=== PATIENT | female | born 1990 | race Caucasian/White ===

== ENCOUNTER 2019-09-03 20:18 | Observation (INO) | payer OTHER, SELFPAY ==
--- NOTE | ~2019-09-03 | CT_ITS ---
EXAMINATION: CT soft tissue neck wo con DATE: 09/03/2019 20:49 INDICATION: Difficulty swallowing, possible food bolus TECHNIQUE: Computed tomography (CT) of the neck was performed without intravenous contrast. The dose- length product (DLP) was 546.15 mGy-cm. Automated exposure control and iterative reconstruction techn ique were employed. COMPARISON: None FINDINGS: The thyroid gland is unremarkable. The submandibular and parotid glands are symmetric. Ther e is no lymphadenopathy. There are no masses identified. The vasculature is patent. The airway is unr emarkable. There are no osseous abnormalities. The orbits are unremarkable. The superior mediastinum is unremarkable. There is minimal opacification of the left maxillary sinus. The visualized portions of the thoracic esophagus is mildly distended. IMPRESSION: 1. Mild distention of the thoracic esophagus which may reflect impacted food bolus. Reviewed, dictated and finalized at location A. IMPRESSION: 1. Mild distention of the thoracic esophagus which may reflect impacted food noe aneudy.
--- NOTE | 2019-09-03 20:19 | ED.GENADULT ---
HPI - General Adult General Chief complaint: Unspecified Stated complaint: cant swallow Time Seen by Provider: 09/03/19 20:19 Source: patient Mode of arrival: ambulatory Limitations: no limitations History of Present Illness HPI narrative: Patient is a 28-year-old female with a history of esophageal stricture who presents to the emergency department for evaluation of inability to swallow or tolerate secretions. Patient states that she was eating a chili dog this evening, she felt as if some of the food was getting stuck in her throat, waited for the sensation to pass and was able to tolerate a small sip of water before taking another bite and now been unable to tolerate any oral intake since that time. Patient states she feels as if there is food stuck in her upper esophagus. She has been vomiting her saliva. She denies any nausea, chest pain, shortness of breath. She states in the past she has seen Dr. Centeno for this, had an EGD with dilatation that improved her symptoms. Patient really has not had much follow-up since last time this occurred in 2018. Related Data Allergies Allergy/AdvReac Type Severity Reaction Status Date / Time diphenhydramine Allergy Unknown Verified 02/07/16 14:14 Review of Systems Review of Systems: Narrative: CONSTITUTIONAL: Denies fever CARDIOVASCULAR: Denies chest pain RESPIRATORY: Denies cough or dyspnea. GASTROINTESTINAL: Denies abdominal pain SKIN: Denies rash MUSCULOSKELETAL: Denies back pain NEUROLOGIC: Denies headache PMFSH Past Medical History Medical History Asthma Esophageal stricture Esophagitis Surgical History Surgical History (Updated 09/03/19 @ 20:39 by Sera Best MD) H/O section Social History Social History Smoking status: Never smoker Alcohol intake: current Gender identity (if verbalized by the patient): Female Exam Narrative: Exam Narrative: GENERAL: Awake, alert, conversant HEAD: Normocephalic, atraumatic. EYES: PERRLA and EOMI. ENT: Nares clear, no rhinorrhea or epistaxis. Mucous membranes moist. Spitting secretions. NECK: Supple. CHEST: No respiratory distress, breathing even and non labored HEART: Regular rate, sinus rhythm ABDOMEN:Non distended, non tender EXTREMITIES: Normal range of motion. No edema. SKIN: Warm, dry, no rash. NEURO:No focal deficits. Alert and oriented x3 Course Vital Signs Vital signs: Vital Signs Temperature 36.4 C 09/03/19 20:20 Pulse Rate 94 09/03/19 20:20 Respiratory Rate 18 09/03/19 20:20 Blood Pressure 143/91 H 09/03/19 20:20 Pulse Oximetry 100 09/03/19 20:20 Temperature 36.4 C 09/03/19 20:20 Pulse Rate 94 09/03/19 21:22 Respiratory Rate 18 09/03/19 21:22 Blood Pressure 112/73 09/03/19 21:22 Pulse Oximetry 98 09/03/19 21:22 Medical Decision Making MDM Narrative Medical decision making narrative: Patient presented to the emergency department for evaluation of possible food bolus, difficulty swallowing her secretions. At the time of assessment, patient is in no acute distress, she does have an emesis basin with mostly saliva in it. Patient without any chest pain or shortness of breath. No findings concerning for Boerhaaves syndrome on exam. CT exam confirms distal esophageal dilation which is concerning for likely food impaction. Did try nitroglycerin, glucagon, Zofran without any improvement in the patient's symptoms. Spoke with Dr. Centeno on-call, the patient to be admitted to hospitalist service, to get IV fluids and remain n.p.o. overnight for EGD first thing in the morning. Patient and family were updated. Differential Diagnosis Differential Diagnosis: Food impaction, esophageal stricture, foreign body Medical Records Medical records reviewed: Yes I reviewed the patient's medical records. Vital Signs Vital Signs: Vital Signs Temperature 36.4 C
[2019-09-03 20:20] VITALS: BP 143/91; PULSE 94; RESP 18; TEMP 36.4; O2SAT 100
[2019-09-03 21:03] LABS: Basophils Absolute Auto 0.1 K/mm3 (0.0-0.1); Basophils Percent Auto 0.7 % (0.2-1.2); Eosinophils Absolute Auto 0.3 K/mm3 (0-0.3); Eosinophils Percent Auto 3.7 % (0-4.4); Hematocrit 40.7 % (37.0-47.0); Hemoglobin 13.6 g/dL (12.0-15.0); Immature Granulocyte Absolute 0.03 K/mm3 (0.00-0.031); Immature Granulocyte Percent A 0.3 % (0-0.5); Lymphocytes Absolute Auto 2.77 K/mm3 (0.9-3.2); Lymphocytes Percent Auto 30.9 % (18.3-44.2); Mean Corpuscular HGB Conc 33.4 g/dl (32-36); Mean Corpuscular Hemoglobin 28.6 pg (26-34); Mean Corpuscular Volume 85.5 fl (80-100); Mean Platelet Volume 10.8 fl (7.4-10.4); Monocytes Absolute Auto 0.5 K/mm3 (0.1-0.6); Neutrophils Absolute Auto 5.3 K/mm3 (1.3-6.7); Neutrophils Percent Auto 59.4 % (45.5-73.1); Platelet Count Result 294 k/mm3 (150-375); Red Blood Count 4.76 M/mm3 (4.2-5.4); Red Cell Distribution Width 12.4 % (11.5-14.5)
[2019-09-03] MEDS: SODIUM CHLORIDE 0.9% IV 1,000 ML 999 ML IV CONT (21:04)
[2019-09-03] MEDS: ONDANSETRON INJ 4 MG/2 ML VIAL IV PUSH (21:04)
[2019-09-03] MEDS: NITROGLYCERIN SL 0.4 MG TABLET SUBLINGUAL (21:04)
[2019-09-03 21:22] VITALS: BP 112/73; PULSE 94; RESP 18; O2SAT 98
[2019-09-03 21:51] LABS: Blood Urea Nitrogen 14 mg/dL (7-17); Calcium 8.8 mg/dL (8.4-10.2); Carbon Dioxide 27 mmol/L (22-30); Chloride 104 mmol/L (98-107); Estimated Glomerular Filt Rate > 60; Glucose 100 mg/dL (65-105); Potassium 3.7 mmol/L (3.4-5.0); Sodium 139 mmol/L (137-145)
[2019-09-03] MEDS: GLUCAGON FOR INJ 1 MG VIAL IV CONT (22:20)
[2019-09-03 22:30] VITALS: RESP 18; O2SAT 98
[2019-09-03 22:45] VITALS: PULSE 73; RESP 16; O2SAT 99
[2019-09-03 23:11] VITALS: BP 138/97; PULSE 73; RESP 16; O2SAT 99
--- NOTE | 2019-09-03 23:13 | PM.IMHP ---
H&P: HPI History of Present Illness Chief complaint: Esophageal food impaction Narrative: Date and time of patient contact: 09/04/2019 at 2:30 a.m. Angie Cornell is a 28 year old female with a past medical history of nonspecific esophagitis and prior esophageal stricture May 2017 who presented to the ER with an inability to swallow err tolerate secretions. The patient reports that she has been eating chili dog this evening and felt as if food was getting stuck in her throat. She reported that she ate her 1st chili dog without problems but when she ate of bite of bread with her 2nd chili dog head sensation of globus. She waited for the sensation to pass in then tried to drink a small sip of water. She then took another bite of food and was unable to tolerate the food and vomited it up. She has not been able to tolerate any oral intake since that time. She was still having vomiting and difficulty controlling her secretions down in the ER. But time of my evaluation the patient is able to control her secretions in feels as if the food has moved down her esophagus. She reports that ever since she had her 1st esophageal obstruction that she chews her food carefully. The last time that she had symptoms like this she had had progressive dysphagia 4 months prior to coming in. This time she had not been having any significant dysphagia. She denies any chest pain or shortness of breath. She has not had any cough or congestion. She does have frequent snoring and has been told that she stops breathing at night. 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 Review of Systems Review of Systems: Narrative: 10 systems were reviewed with pertinent positives and negatives per HPI. Except as documented in the HPI, all other systems were reviewed and are negative. [facility] Past Medical History Medical History (Updated 09/04/19 @ 04:54 by Abby Mckeon DO) Asthma Esophageal stricture May 2017 Esophagitis May 2017 Surgical History Surgical History (Updated 09/04/19 @ 04:45 by Abby Mckeon DO) H/O section S/P dilatation of esophageal stricture May [address] Centeno Family History Family History Other Adopted person Social History Social History (Updated 09/04/19 @ 04:48 by GERARDO Parikh Social History: Primary care physician: Dr. Paul Gatica Code status: Full code Smoking status: Never smoker Alcohol intake: current Drinks per week: 2 Alcohol use details: She drinks 2-3 alcoholic beverages a week. Substance use: current Substance use type: does not use Additional living arrangements comments: She lives with her boyfriend of 5 years. She is from her who is been blocking a divorce since 2012. She has a son age 7 in a daughter age 8. 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 Gender identity (if verbalized by the patient): Female Spiritual care concerns: No Meds Home Medications and Allergies Home Medications Medication Instructions Recorded Confirmed Type albuterol sulfate 2 puff INHALATION Q4-6H PRN 09/04/19 09/04/19 History Allergies Allergy/AdvReac Type Severity Reaction Status Date / Time diphenhydramine Allergy Unknown Verified 02/07/16 14:14 Vital Signs Vital Signs - 24 hr 09/03/19 20:20 09/03/19 21:22 09/03/19 22:30 Temperature 97.6 F Pulse Rate 94 94 Respiratory Rate 18 18 18 Blood Pressure 143/91 H 112/73 Pulse Oximetry 100 98 98 09/03/19 22:45 Temperature Pulse Rate 73 Respiratory Rate 16 Blood Pressure Pulse Oximetry 99 Exam Narrative: Exam Narrative: PHYSICAL EXAM: WEIGHT 116 kg BMI 35.7 General: Obese, no acute distress HEENT: Mucous membranes are moist, no oral phary
--- NOTE | 2019-09-03 23:31 | ADMGEN ---
This patient, Angie Cornell, was admitted to 2 Medical Room 251-01. Patient/family oriented to hospital policies and general routines including ID bracelet, bed and alarms, visiting hours, pain management, procedures, bathroom and other care routines, personal items, smoking policy, room service/diet, and visiting hours. Valuables list has been completed. Information on how to activate the Rapid Response Team has been discussed. Patient/Family are encouraged to report perceived risks to care and to ask questions if they do not understand what they are told or what they should do.
[2019-09-03 23:49] VITALS: BP 149/93; PULSE 88; RESP 18; TEMP 35.9; O2SAT 100
[2019-09-03 23:50] VITALS: BMI 35.6
[2019-09-04] MEDS: SODIUM CHLORIDE 0.9% IV 1,000 ML 125 ML IV CONT (01:14)
[2019-09-04 06:00] VITALS: BP 111/72; PULSE 80; RESP 18; TEMP 36.1; O2SAT 98
--- NOTE | 2019-09-04 07:21 | WPDGICN ---
Assessment and Plan Assessment and plan (1) Esophageal obstruction due to food impaction: Code(s): K22.2 - Esophageal obstruction; T18.128A - Food in esophagus causing other injury, initial encounter Status: Acute Assessment and Plan: Food impaction that occurred last evening suspicious for narrowing of the esophagus. Plan is for EGD to assess more thoroughly. Likely she has esophageal stricture because of this finding on endoscopy 1-2 years ago. Plan is for EGD she may benefit from long-term acid reflux measures. This will be determine further after endoscopy. GI Consult Note Consult date/time: 09/04/19 07:21 HPI: Angie Cornell is a 28 year old female Seen in evaluation at the request of the emergency room. Patient in usual state of health till last evening she was eating chili dogs. She subsequently was unable to eat or swallow. She felt as though portion of her food became lodged in the mid substernal portion of the chest. She continues to feel swelling discomfort. Although intense pain has abated. Patient gives a history of esophageal stricture 1 year ago. That presented with a food impaction. At that time she had esophageal web dilated. In the intervening time she has had no difficulty. She does not have heartburn. Does takes no medications for acid reflux. She reports that her weight is stable she has had no bleeding. Family history is noncontributory. Review of Systems Review of Systems: All systems reviewed & are unremarkable except as noted in HPI and below PMFSH Past Medical History Medical History Asthma Esophageal stricture May 2017 Esophagitis May 2017 Surgical History Surgical History H/O section S/P dilatation of esophageal stricture May [address] Centeno Family History Family History Other Adopted person Social History Social History Social History: Primary care physician: Dr. Paul Gatica Code status: Full code Smoking status: Never smoker Alcohol intake: current Drinks per week: 2 Alcohol use details: She drinks 2-3 alcoholic beverages a week. Substance use: current Substance use type: does not use Additional living arrangements comments: She lives with her boyfriend of 5 years. She is from her who is been blocking a divorce since 2012. She has a son age 7 in a daughter age 8. 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 Gender identity (if verbalized by the patient): Female Spiritual care concerns: No Meds Home Medications and Allergies Home Medications Medication Instructions Recorded Confirmed Type albuterol sulfate 2 puff INHALATION Q4-6H PRN 09/04/19 09/04/19 History Allergies Allergy/AdvReac Type Severity Reaction Status Date / Time diphenhydramine Allergy Unknown Verified 02/07/16 14:14 Vital Signs Vital Signs - 24 hr 09/03/19 20:20 09/03/19 21:22 09/03/19 22:30 Temperature 97.6 F Pulse Rate 94 94 Respiratory Rate 18 18 18 Blood Pressure 143/91 H 112/73 Pulse Oximetry 100 98 98 09/03/19 22:45 09/03/19 23:11 09/03/19 23:49 Temperature 96.7 F L Pulse Rate 73 73 88 Respiratory Rate 16 16 18 Blood Pressure 138/97 H 149/93 H Pulse Oximetry 99 99 100 09/04/19 06:00 Temperature 97.0 F L Pulse Rate 80 Respiratory Rate 18 Blood Pressure 111/72 Pulse Oximetry 98 Exam Narrative: Exam Narrative: Physical exam reveals patient to be alert. Vital signs stable. HEENT exam unremarkable. She is anicteric. Lungs are clear to auscultation and percussion. Heart is without murmur or extra sounds. Abdominal exam bowel sounds are present soft nontender
[2019-09-04 07:42] VITALS: BP 131/77; PULSE 81; RESP 16; TEMP 36.6; O2SAT 99
--- NOTE | 2019-09-04 07:42 | WPDANESEPPF ---
Anes - Initial Pre Proc Eval Procedure: Operation Date: 09/04/19 11:00 Proposed Procedures p Esophagogastroduodenoscopy - Raudel Centeno MD Date/Time: 09/04/19 07:42 Surgeon: Patricia Whalen PA-C Pre Op Diagnosis: Esophageal food impaction Patient Data Age: 28 Gender: F Height: 1.8 m Weight: 116 kg Last Vital Signs Temp 36.1 C L 09/04/19 06:00 Pulse 80 09/04/19 06:00 Resp 18 09/04/19 06:00 BP 111/72 09/04/19 06:00 Pulse Ox 98 09/04/19 06:00 Allergies Allergy/AdvReac Type Severity Reaction Status Date / Time diphenhydramine Allergy Unknown Cramping Verified 09/04/19 07:40 of the Muscles Home Medications Medication Instructions Recorded Confirmed Type albuterol sulfate 2 puff INHALATION Q4-6H PRN 09/04/19 09/04/19 History Laboratory Tests 09/03/19 09/03/19 20:56 21:28 WBC 9.0 K/mm3 K/mm3 (4.5-10.0) RBC 4.76 M/mm3 M/mm3 (4.2-5.4) Hgb 13.6 g/dL g/dL (12.0-15.0) Hct 40.7 % % (37.0-47.0) MCV 85.5 fl fl (80-100) MCH 28.6 pg pg (26-34) MCHC 33.4 g/dl g/dl (32-36) RDW 12.4 % % (11.5-14.5) Plt Count 294 k/mm3 k/mm3 (150-375) MPV 10.8 fl H fl (7.4-10.4) Immature Gran % (Auto) 0.3 % % (0-0.5) Neut % (Auto) 59.4 % % (45.5-73.1) Lymph % (Auto) 30.9 % % (18.3-44.2) Drew % (Auto) 5.0 % % (2.6-8.5) Eos % (Auto) 3.7 % % (0-4.4) Baso % (Auto) 0.7 % % (0.2-1.2) Lymph # (Auto) 2.77 K/mm3 K/mm3 (0.9-3.2) Drew # (Auto) 0.5 K/mm3 K/mm3 (0.1-0.6) Eos # (Auto) 0.3 K/mm3 K/mm3 (0-0.3) Baso # (Auto) 0.1 K/mm3 K/mm3 (0.0-0.1) Abs Immat Gran (auto) 0.03 K/mm3 K/mm3 (0.00-0.031) Absolute Neuts (auto) 5.3 K/mm3 K/mm3 (1.3-6.7) Absolute Nucleated RBC 0.0 K/mm3 K/mm3 (0.0-0.012) Nucleated RBC % 0.0 % % (0.0-0.2) Sodium 139 mmol/L mmol/L (137-145) Potassium 3.7 mmol/L mmol/L (3.4-5.0) Chloride 104 mmol/L mmol/L (98-107) Carbon Dioxide 27 mmol/L mmol/L (22-30) BUN 14 mg/dL mg/dL (7-17) Creatinine 0.80 mg/dL mg/dL (0.7-1.0) Estim Creat Clear Calc Not Reportable Estimated GFR > 60 (59 - ) Glucose 100 mg/dL mg/dL (65-105) Calcium 8.8 mg/dL mg/dL (8.4-10.2) Patient hx anesthesia problems: none Family hx [facility] problems: [facility] Past Medical History Medical History (Updated 09/04/19 @ 07:42 by Boaz Cisneros MD) Asthma Esophageal stricture May 2017 Esophagitis May 2017 Obesity Snoring Surgical History Surgical History H/O section S/P dilatation of esophageal stricture May [address] Centeno Family History Family History Other Adopted person Social History Social History Social History: Primary care physician: Dr. Paul Gatica Code status: Full code Smoking status: Never smoker Alcohol intake: current Drinks per week: 2 Alcohol use details: She drinks 2-3 alcoholic beverages a week. Substance use: current Substance use type: does not use Additional living arrangements comments: She lives with her boyfriend of 5 years. She is from her who is been blocking a divorce since 2012. She has a son age 7 in a daughter age 8. 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 Gender identity (if verbalized by the patient): Female Spiritual care concerns: No Anes - Eval Final PreProcedure Day of Procedure 09/04/19 07:42 Patient weight: obese Heart: regular rate and rhythm Lungs: clear to auscultation and normal air movement Airway: Mallampati scale class II Neuro
[2019-09-04] MEDS: LACTATED RINGERS 1,000 ML 150 ML IV CONT (07:49)
--- NOTE | 2019-09-04 07:56 | PC.NURSE ---
Off the floor for EGD.
[2019-09-04 08:00] VITALS: PULSE 81; RESP 16; O2SAT 99
[2019-09-04 08:26] VITALS: BP 105/51; PULSE 83; RESP 18; O2SAT 97
[2019-09-04 08:36] VITALS: BP 93/52; PULSE 78; RESP 18; O2SAT 97
[2019-09-04 08:46] VITALS: BP 114/59; PULSE 75; RESP 18; O2SAT 99
--- NOTE | 2019-09-04 09:20 | PC.NURSE ---
Returned to room alert oriented.Ready to go home after she eats.
--- NOTE | 2019-09-04 11:04 | PM.DS ---
DS: Admitting Diagnosis Admitting Diagnosis Admitting Diagnosis: Esophageal obstruction DS: Discharge Diagnosis Discharge Diagnosis (1) Esophageal obstruction due to food impaction: Code(s): K22.2 - Esophageal obstruction; T18.128A - Food in esophagus causing other injury, initial encounter Status: Acute (2) Snoring: Code(s): R06.83 - Snoring Status: Acute Assessment and Plan: Outpatient sleep study was recommended due to the patient's body habitus and report of daytime sleepiness, fatigue, snoring, and witnessed apnea. She was provided with an order and advised to follow-up with her PCP for scheduling. DS: Summary Hospital Course Reason for hospitalization: Dysphagia Hospital Course: Mrs. Cornell is a 28 y.o. female with PMH significant for esophageal stricture, esophagitis, obesity, and asthma who presented to the emergency department via private vehicle for the evaluation of dysphagia and inability to tolerate secretions. She reported that she ate one chili dog without difficulty but felt like the first bite of the second chili dog got stuck and she had a globus sensation. She tried a sip of water but was unable to pass the foot and vomited. CT soft tissue neck revealed mild distention of the thoracic esophagus suggesting impacted food bolus. Dr. Centeno was consulted from the ED and recommended admission for EGD. She was admitted to the hospitalist service and treated with IV fluids. EGD revealed an esophageal web in the esophageal cardia at a depth of 1cm from the incisors. A Talavera bougie dilation was performed. Dr. Centeno recommended acid reflux measures and pepcid 20mg BID. She ate lunch without difficulty and was cleared for discharge from a GI standpoint. Outpatient polysomnography was recommended and she was encouraged to follow-up with her PCP to schedule this. She was discharged in stable contiion on the morning of 09/04/19. Status at Discharge Functional status at discharge: independent ambulation Overall status at discharge: patient is back to baseline Time Spent with Patient Time attestation: Total time spent providing and/or coordinating discharge services: 35 minutes Exam Narrative: Exam Narrative: Vitals at presentation: Temp Pulse Resp BP Pulse Ox 97.6 F 94 18 143/91 H 100 09/03/19 20:20 09/03/19 20:20 09/03/19 20:20 09/03/19 20:20 09/03/19 20:20 Vitals at discharge: Temp Pulse Resp BP Pulse Ox 97.9 F 75 18 114/59 L 99 09/04/19 07:42 09/04/19 08:46 09/04/19 08:46 09/04/19 08:46 09/04/19 08:46 General: Very pleasant and cooperative, obese, well-developed female lying in the semi-olmstead's position in no acute distress wiht her significant other at the bedside. HEENT: Normocephalic and atraumatic. Sclera anicteric. Conjunctivae and lids normal. EOMI. Mucous membranes moist. Posterior pharynx without erythema or exudate. Neck: Large neck circumference. Supple without lymphadenopathy or masses. Cardiac: Regular rate and rhythm. S1 and S2 normal. Lungs: Effort normal. Lungs clear to auscultation bilaterally. Abdomen: Normoactive bowel sounds. Abdomen is soft, non-distended, and non-tender. Extremities: No lower extremity edema. Jimbo negative. Bounding pedal pulses. Neurological: Alert. No focal neurological deficits noted to casual conversation. Speech is clear. Skin: Warm and dry. Psychiatric: Judgment and insight intact. Mood pleasant and affect normal. DS: Data Data Completed and Pending Labs on day of discharge: Labs from last 24 hours 09/03/19 09/03/19 21:28 20:56 WBC 9.0 RBC 4.76 Hgb 13.6 Hct 40.7 MCV 85.5 MCH 28.6 MCHC 33.4 RDW 12.4 Plt Count 294 MPV 10.8 H Imm
== END 2019-09-04 12:17 | disposition home or self-care (01) ==
LOC: ANHED 22:05 → ANH2MED 22:12
PROVIDERS: Internal Medicine Gastroenterology; Admitting Provider Internal Medicine; Emergency Provider Emergency Medicine; PCP Emergency Medicine; Visit Provider Family Medicine
PROC: 0DJ08ZZ Inspection of Upper Intestinal Tract, Via Natural or Artificial Opening Endoscopic (ICD-10-PCS; CPT 43235; principal; 2019-09-04 11:00)
DX: T18.128A Food in esophagus causing other injury, initial encounter (principal); Q39.4 Esophageal web; R06.83 Snoring; J45.909 Unspecified asthma, uncomplicated; E66.9 Obesity, unspecified; Z68.35 Body mass index [BMI] 35.0-35.9, adult
CPT/HCPCS: 43450; 43235; 36415; 70490; 80048; 81025; 85025; 96361; 96374; 96375; 99285; A9270; G0378; J1610; J2405; J2704; J7030; J7120